=== PATIENT | female | born 1950 | race Caucasian/White ===

== ENCOUNTER 2021-03-14 10:23 | Observation (INO) | payer MEDICARE ==
[~2021-03-14] VITALS: Ht 162.6 cm; Wt 68.1 kg
[~2021-03-14 10:23] MED LIST: ASPI-424 PO; CALC1TAB67 PO; MULT-208 PO; OMEG1CAP6 PO
[2021-03-14] MEDS ORDERED: IV NORMAL SALINE 1000ML BAG 1,000 ML IV SCH (10:30)
[2021-03-14 10:48] LABS: BASO % 1 % (0-3); EOS # 0.2 x10^3/uL (0.0-0.7); EOS % 3 % (0-3); HEMATOCRIT 37.1 % (36.0-47.0); HEMOGLOBIN 12.8 g/dL (12.0-15.5); LYMPH # 2.2 x10^3/uL (1.0-4.8); LYMPH % 31 % (24-48); MEAN CORPUSCULAR HEMOGLOBIN 30 pg (25-35); MEAN CORPUSCULAR HGB CONC 35 g/dL (31-37); MEAN CORPUSCULAR VOLUME 86 fL (79-100); MONO # 0.7 x10^3/uL (0.0-1.1); MONO % 9 % (0-9); NEUT # 3.9 x10^3/uL (1.8-7.7); NEUT % 56 % (31-73); PLATELET COUNT 267 x10^3/uL (140-400); RED BLOOD COUNT 4.32 x10^6/uL (3.50-5.40); RED CELL DISTRIBUTION WIDTH 13.4 % (11.5-14.5); WHITE BLOOD COUNT 7.1 x10^3/uL (4.0-11.0)
[2021-03-14 10:59] LABS: CALCIUM 9.1 mg/dL (8.5-10.1); CREATININE 0.8 mg/dL (0.6-1.0); GFR 70.5; POTASSIUM 3.8 mmol/L (3.5-5.1)
[2021-03-14 11:05] LABS: ALBUMIN/GLOBULIN RATIO 1.2 (1.0-1.7); MAGNESIUM 1.9 mg/dL (1.8-2.4); TOTAL BILIRUBIN 0.4 mg/dL (0.2-1.0); TOTAL PROTEIN 7.3 g/dL (6.4-8.2)
[2021-03-14 11:11] LABS: BILIRUBIN,URINE NEGATIVE (NEG); CLARITY,URINE CLEAR; COLOR,URINE YELLOW; NITRITE,URINE NEGATIVE (NEG); PROTEIN,URINE NEGATIVE (NEG-TRACE); UROBILINOGEN,URINE 0.2 mg/dL (0.2 mg/dL)
--- NOTE | 2021-03-14 11:11 | RAD ---
EXAM: Chest, single view. HISTORY: Chest pain. COMPARISON: 02/10/2015. FINDINGS: A frontal view of the chest is obtained. There is no infiltrate, pleural effusion or pneumo thorax. There are chronic appearing interstitial changes. There are calcified granula misprint heart is normal in size. IMPRESSION: No acute pulmonary finding. Electronically signed by: Alyssa Geiger MD (03/14/2021 11:08 AM) [id number]
[2021-03-14 11:18] LABS: BARBITURATES NEG (NEG); BENZODIAZEPINES NEG (NEG); CANNABINOIDS NEG (NEG); COCAINE NEG (NEG); METHADONE NEG (NEG); OPIATES NEG (NEG); PHENCYCLIDINE NEG (NEG)
[2021-03-14 11:20] VITALS: BP 118/54
[2021-03-14 11:20] LABS: AMPHETAMINE/METHAMPHETAMINE NEG (NEG)
[2021-03-14 11:24] LABS: RBC,URINE OCC /HPF (0-2)
[2021-03-14 11:25] LABS: BACTERIA,URINE MANY /HPF (0-FEW)
--- NOTE | 2021-03-14 11:34 | PHYS DOC ---
Past Medical History Past Medical History: No Pertinent History Past Surgical History: , Tonsillectomy, Other Additional Past Surgical Histo: knee scope, carpel tunnel Smoking Status: Never Smoker Alcohol Use: Rarely Drug Use: None Adult General Chief Complaint Chief Complaint: CHEST PAIN [facility] HPI Patient is a 71 year old female who denies any significant past medical history now presents emergency department complaint of new onset of chest pain. Patient states that approximately 6 AM this morning started having new onset of left anterior chest pain that intermittently radiated to the back. Patient states that it was worse when she was exerting herself, she was cooking and making breakfast this morning. Also notes that she had a similar episode which occ urred approximately 5 days ago which spontaneously resolved. Does states the episode this morning was associated with a sensation of dizziness as though she had to hold his over the counter in order to keep her self steady. Denies any fevers, chills, cough, recent illness or sick contacts. Review of Systems Review of Systems Constitutional: Denies fever or chills [] Eyes: Denies change in visual acuity, redness, or eye pain [] HENT: Denies nasal congestion or sore throat [] Respiratory: Denies cough or shortness of breath [] Cardiovascular: No additional information not addressed in HPI [] GI: Denies abdominal pain, nausea, vomiting, bloody stools or diarrhea [] : Denies dysuria or hematuria [] Musculoskeletal: Denies back pain or joint pain [] Integument: Denies rash or skin lesions [] Neurologic: Denies headache, focal weakness or sensory changes [] Endocrine: Denies polyuria or polydipsia [] All other systems were reviewed and found to be within normal limits, except as documented in this note. Current Medications Current Medications Current Medications Medications (Trade) Dose Ordered Sig/Janelle Start Time Stop Time Status Last Admin Dose Admin Sodium Chloride 1,000 ml @ 1,000 mls/hr Q1H 03/14/21 10:30 03/14/21 11:29 DC 03/14/21 10:44 1,000 MLS/HR Allergies Allergies Allergies Coded Allergies Type Severity Reaction Last Updated Verified No Known Drug Allergies 02/10/15 No Physical Exam Physical Exam Constitutional: Well developed, well nourished, no acute distress, non-toxic appearance. [] HENT: Normocephalic, atraumatic, bilateral external ears normal, oropharynx moist, no oral exudates, nose normal. [] Eyes: PERRLA, EOMI, conjunctiva normal, no discharge. [] Neck: Normal range of motion, no tenderness, supple, no stridor. [] Cardiovascular:Heart rate regular rhythm, no murmur [] Lungs & Thorax: Bilateral breath sounds clear to auscultation [] Abdomen: Bowel sounds normal, soft, no tenderness, no masses, no pulsatile masses. [] Skin: Warm, dry, no erythema, no rash. [] Back: No tenderness, no CVA tenderness. [] Extremities: No tenderness, no cyanosis, no clubbing, ROM intact, no edema. [] Neurologic: Alert and oriented X 3, normal motor function, normal sensory function, no focal deficits noted. [] Psychologic: Affect normal, judgement normal, mood normal. [] Current Patient Data Vital Signs Vital Signs Date Time Temp Pulse Resp B/P (MAP) Pulse Ox O2 Delivery O2 Flow Rate FiO2 03/14/21 10:25 98.3 75 18 183/82 (115) 100 Room Air 98.3 Lab Values Laboratory Tests Test 03/14/21 10:40 03/14/21 10:50 White Blood Count 7.1 x10^3/uL (4.0-11.0) Red Blood Count 4.32 x10^6/uL (3.50-5.40) Hemoglobin 12.8 g/dL (12.0-15.5) Hematocrit 37.1 % (36.0-47.0) Mean Corpuscular Volume 86 fL (79-100) Mean Corpuscular Hemoglobin 30 pg (25-35) Mean Corpuscular Hemoglobin Concent 35 g/dL (31-37) Red Cell Distribution Width 13.4 % (11.5-14.5) Platelet Count 267 x10^3/uL (140-400) Neutrophils (%) (Auto) 56 % (31-73) Lymphocytes (%) (Auto) 31 % (24-48) Monocytes (%) (Auto) 9 % (0-9) Eosinophils (%) (Auto) 3 % (0-3) Basophils (%) (Auto) 1 % (0-3) Neutrophils # (Auto) 3.9 x10^3/uL (1.8-7.7) Lymphocytes # (Auto) 2.2 x10^3/uL (1.0-4.8) Monocytes # (Auto) 0.7 x10^3/uL (0.0-1.1) Eosinophils # (Auto) 0.2 x10^3/uL (0.0-0.7) Basophils # (Auto) 0.0 x10^3/uL (0.0-0.2) Sodium Level 139 mmol/L (136-145) Potassium Level 3.8 mmol/L (3.5-5.1) Chloride Level 102 mmol/L (98-107) Carbon Dioxide Level 27 mmol/L (21-32) Anion Gap 10 (6-14) Blood Urea Nitrogen 15 mg/dL (7-20) Creatinine 0.8 mg/dL (0.6-1.0) Estimated GFR (Cockcroft-Gault) 70.5 BUN/Creatinine Ratio 19 (6-20) Glucose Level 92 mg/dL (70-99) Calcium Level 9.1 mg/dL (8.5-10.1) Magnesium Level 1.9 mg/dL (1.8-2.4) Total Bilirubin 0.4 mg/dL (0.2-1.0) Aspartate Amino Transferase (AST) 17 U/L (15-37) Alanine Aminotransferase (ALT) 26 U/L (14-59) Alkaline Phosphatase 87 U/L (46-116) Troponin I Quantitative < 0.017 ng/mL (0.000-0.055) CA-Rzv-Z-Type Natriuretic Peptide 101 pg/mL (0-124) Total Protein 7.3 g/dL (6.4-8.2) Albumin 4.0 g/dL (3.4-5.0) Albumin/Globulin Ratio 1.2 (1.0-1.7) Lipase 102 U/L (73-393) Urine Collection Type Unknown Urine Color Yellow Urine Clarity Clear Urine pH 7.0 (<5.0-8.0) Urine Specific [place] <=1.005 (1.000-1.030) Urine Protein Negative mg/dL (NEG-TRACE) Urine Glucose (UA) Negative mg/dL (NEG) Urine Ketones (Stick) Negative mg/dL (NEG) Urine Blood Negative (NEG) Urine Nitrite Negative (NEG) Urine Bilirubin Negative (NEG) Urine Urobilinogen Dipstick 0.2 mg/dL (0.2 mg/dL) Urine Leukocyte Esterase Trace (NEG) Urine RBC Occ /HPF (0-2) Urine WBC 1-4 /HPF (0-4) Urine Squamous Epithelial Cells Few /LPF Urine Bacteria Many /HPF (0-FEW) Urine Opiates Screen Neg (NEG) Urine Methadone Screen Neg (NEG) Urine Barbiturates Neg (NEG) Urine Phencyclidine Screen Neg (NEG) Urine Amphetamine/Methamphetamine Neg (NEG) Urine Benzodiazepines Screen Neg (NEG) Urine Cocaine Screen Neg (NEG) Urine Cannabinoids Screen Neg (NEG) Urine Ethyl Alcohol Neg (NEG) Laboratory Tests 03/14/21 10:40 Laboratory Tests 03/14/21 10:40 EKG EKG [] Radiology/Procedures Radiology/Procedures [] Course & Med Decision Making Course & Med Decision Making Pertinent Labs and Imaging studies reviewed. (See chart for details) 71F presenting to emergency department new onset of chest pain. Initial work-up negative without evidence of troponin anemia or EKG changes however given patient's age and presence of dizziness we will plan for her admission for observation Dragon Disclaimer Dragon Disclaimer This electronic medical record was generated, in whole or in part, using a voice recognition dictation system. Departure Departure Impression: Primary Impression: Chest pain Disposition: ADMITTED INPATIENT Condition: GOOD Referrals: BREN BERNSTEIN MD (PCP) PERRI SONG MD Mar 14, 2021 11:33
--- NOTE | 2021-03-14 11:37 | EKG ---
[facility] [address] [place] [address] Test Date: 2021-03-14 Test Time: 10:29:50 Pat Name: VANGIE PARSONS Department: Room: Gender: F Pin Sticker: : [id number] Requested By: PERRI SONG Order Number: [id number] Reading MD: Bari Alba MD Measurements Intervals [place] Rate: 67 P: 43 NE: 192 QRS: 57 QRSD: 76 T: 54 QT: 378 QTc: 402 Interpretive Statements SINUS RHYTHM RBBB Electronically Signed On 03-14-2021 16:11:51 CDT by Bari Alba MD
[2021-03-14] MEDS ORDERED: ONDANSETRON PF 4 MG/2 ML VIAL. IV PRN (11:45)
[2021-03-14 12:43] VITALS: BP 164/67
--- NOTE | 2021-03-14 13:03 | HP ---
ADMIT DATE: 03/14/2021 CHIEF COMPLAINT: Chest pain. HISTORY OF PRESENT ILLNESS: The patient is a pleasant 71-year-old female, who presents with chest pain. She denies any history of coronary artery disease. She states it has been occurring for several days, got worse this morning about 6:00. She had some left anterior chest pain that was intermittent and radiated to the back, worse when she is moving, better when she is sitting still. I discussed the case with ER physician. We are going to admit the patient to rule out coronary artery disease. PAST SURGICAL HISTORY: , tonsillectomy, knee surgery, carpal tunnel surgery. ALLERGIES: None. FAMILY HISTORY: Diabetes. SOCIAL HISTORY: She is . Does not drink, smoke or take drugs. MEDICATIONS: Reviewed. Please refer there for the medication. REVIEW OF SYSTEMS: GENERAL: No history of weight change, weakness or fevers. SKIN: No bruising, hair changes or rashes. EYES: No blurred, double or loss of vision. NOSE AND THROAT: No history of nosebleeds, hoarseness or sore throat. CARDIAC: She complains of chest pain. LUNGS: Denies cough, hemoptysis, wheezing or shortness of breath. GASTROINTESTINAL: Denies changes in appetite, nausea, vomiting, diarrhea or constipation. GENITOURINARY: No history of frequency, urgency, hesitancy or nocturia. NEUROLOGIC: Denies history of numbness, tingling, tremor or weakness. PSYCHIATRIC: No history of panic, anxiety or depression. ENDOCRINE: No history of heat or cold intolerance, polyuria or polydipsia. EXTREMITIES: Denies muscle weakness, joint pain, pain on walking or stiffness. PHYSICAL EXAMINATION: VITALS: Within normal limits and are stable. GENERAL: No apparent distress. Alert and oriented. HEENT: Normal cephalic atraumatic, external auditory canals are patent EYES: Extraocular muscles are intact, pupils are equally round and reactive to light and accommodation MUSCULOSKELETAL: Well developed, well nourished, good range of motion ENDOCRINE: No thyromegaly was palpated LYMPHATICS: No cervical chain or axillary nodes were noted HEMATOPOIETIC: No bruising NECK: Supple, no JVD, no thyromegaly was noted. LUNGS: Clear to auscultation in all lung avery without rhonchi or wheezing. HEART: RRR, S1, S2 present. Peripheral pulses intact, no obvious murmurs were noted. ABDOMEN: Soft, nontender. Positive bowel sounds no organomegaly, normal bowel sounds. EXTREMITIES: Without any cyanosis, clubbing, or edema. Pedal pulses intact, Homans sign is negative. NEUROLOGIC: Normal speech, normal tone. A and O x3, moves all extremities, no obvious focal deficits. PSYCHIATRIC: Normal affect, normal mood. Stable. SKIN: No ulcerations or rashes, good skin turgor, no jaundice. VASCULAR: Good capillary refill, neurovascular bundle appears to be intact. LABORATORY DATA: Hematology is normal. Electrolytes were normal. Troponin is 0. ASSESSMENT AND PLAN: Chest pain, rule out coronary artery disease. The patient has been amenable. Check serial enzymes, serial EKGs, home medications, deep venous thrombosis. Full code. Consult cardiology. Prognosis is guarded. SAURAV/POLA DR: Veronica TID: [id number]
[2021-03-14 14:44] VITALS: BP 159/66
--- NOTE | 2021-03-14 16:16 | PDOC2 ---
CARDIOLOGY CONSULT NOTE DATE OF SERVICE: DATE: 03/14/21 TIME: 16:12 CHIEF COMPLAINT: Chest pain HPI: Chen is a 71-year-old woman who comes into the hospital in the setting of chest pain. She apparently was in her usual state of health and this morning while walking and making some breakfast she began to feel some chest discomfort that was intermittent in nature and upon arrival to the ER was noted to have a systolic blood pressure above 180. Of note she was seen by her primary care physician in the recent past and advised to monitor blood pressure closely. Since admission she has not had any recurrence of chest pain. Initial EKG and cardiac enzymes are unremarkable. She has no palpitations, syncope, orthopnea or PND. No significant lower extremity edema. PMHX: 1. Hypertension SOCHX: No alcohol, tobacco or illicit drug use FAMHX: Noncontributory CURRENT MEDS: Current Medications Medications (Trade) Dose Ordered Sig/Janelle Route PRN Reason Start Time Stop Time Status Last Admin Dose Admin Sodium Chloride 1,000 ml @ 1,000 mls/hr Q1H IV 03/14/21 10:30 03/14/21 11:29 DC 03/14/21 10:44 ALLERGIES: Allergies Coded Allergies Type Severity Reaction Last Updated Verified No Known Drug Allergies 02/10/15 No ROS: Negative for 10 out of 14 systems reviewed unless otherwise mentioned above in HPI PHYSICAL EXAM: Vital Signs/I&O: Vital Signs Date Time Temp Pulse Resp B/P (MAP) Pulse Ox O2 Delivery O2 Flow Rate FiO2 03/14/21 14:44 97.6 67 18 159/66 (97) 99 Room Air 97.6 Physical Exam: The patient appeared well nourished and normally developed. Head exam is unremarkable. No scleral icterus or corneal arcus noted. Neck is without jugular venous distension, thyromegaly, or carotid bruits. Carotid upstrokes are brisk bilaterally. Lungs are clear to auscultation and percussion. Cardiac exam reveals the PMI to be normally sized and situated. Rhythm is regular. First and second heart sounds normal. No murmurs, rubs or gallops. Abdominal exam reveals normal bowel sounds, no masses, no organomegaly and no aortic enlargement. Extremities are nonedematous and both femoral and pedal pulses are normal. Msk: No traumua Neuro: No focal deficits DIAGNOSTIC TESTING: Negative EKG Normal cardiac enzymes Myocardial stress test in 2014 unremarkable ASSESSMENT: 1. Chest pain secondary to uncontrolled hypertension PLAN: 1. Initiate lisinopril 10 mg p.o. daily and monitor her blood pressure 2. Check lipid panel 3. Outpatient echocardiogram and stress testing. Thank you for this consultation. GERBER BEAL MD Mar 14, 2021 16:16
[2021-03-14] MEDS ORDERED: LISINOPRIL 10 MG TABLET PO ONE (16:30)
[2021-03-14 18:33] VITALS: BP 106/51
[2021-03-14 19:52] VITALS: BP 158/80
[2021-03-14 23:47] VITALS: BP 118/54
[2021-03-15 03:20] VITALS: BP 108/53
[2021-03-15] MEDS ORDERED: ACETAMINOPHEN 325 MG TABLET. PO PRN (06:15)
[2021-03-15 07:58] VITALS: BP 147/71
[2021-03-15 08:22] LABS: BASO % 1 % (0-3); EOS # 0.2 x10^3/uL (0.0-0.7); EOS % 3 % (0-3); HEMOGLOBIN 12.8 g/dL (12.0-15.5); LYMPH # 1.4 x10^3/uL (1.0-4.8); LYMPH % 29 % (24-48); MEAN CORPUSCULAR HEMOGLOBIN 29 pg (25-35); MEAN CORPUSCULAR HGB CONC 34 g/dL (31-37); MEAN CORPUSCULAR VOLUME 87 fL (79-100); MONO # 0.4 x10^3/uL (0.0-1.1); MONO % 9 % (0-9); NEUT # 2.8 x10^3/uL (1.8-7.7); NEUT % 57 % (31-73); PLATELET COUNT 257 x10^3/uL (140-400); RED BLOOD COUNT 4.35 x10^6/uL (3.50-5.40); RED CELL DISTRIBUTION WIDTH 13.3 % (11.5-14.5); WHITE BLOOD COUNT 4.8 x10^3/uL (4.0-11.0)
[2021-03-15 08:27] LABS: CALCIUM 8.7 mg/dL (8.5-10.1); CREATININE 0.8 mg/dL (0.6-1.0); GFR 70.5; POTASSIUM 3.9 mmol/L (3.5-5.1)
[2021-03-15 08:44] LABS: CHOLESTEROL/HDL RATIO 2.7
[2021-03-15] MEDS ORDERED: LISINOPRIL 10 MG TABLET PO SCH (09:00)
--- NOTE | 2021-03-15 10:53 | PDOC ---
Provider Note Date of Service: DATE: 03/15/21 TIME: 10:53 Provider Note Home on Lisinopril 10mg daily, Atorvastatin 20mg daily and ASA 81mg daily. Outpt stress testing. Thanks Justifications for Admission Other Justification GERBER BEAL MD Mar 15, 2021 10:53
[2021-03-15 10:59] VITALS: BP 155/75
[2021-03-15] MEDS ORDERED: ATOR20TA58 PO (12:39)
[2021-03-15] MEDS ORDERED: LISI10TA16 PO (12:39)
--- NOTE | 2021-03-15 13:30 | DS ---
DATE OF DISCHARGE: 03/15/2021 ADMISSION DIAGNOSIS: Chest pain, rule out coronary artery disease. DISCHARGE DIAGNOSES: 1. Resolving chest pain, suspect possible hypertension related (her pressures were 183/82 when she arrived here). 2. History of . 3. Tonsillectomy. 4. Right knee surgery. 5. Carpal tunnel surgery. CONSULTS: Cardiology. PROCEDURES: None. HOSPITAL COURSE: The patient is a pleasant elderly female who presented with chest pain. We admitted her and did serial enzymes, serial EKGs. We consulted Cardiology, do cardiac monitoring. We adjusted her blood pressures and now she is doing better today. I saw and examine her. She is at her baseline and wants to go home. We plan a discharge with close outpatient followup and cardiology would like to do an outpatient stress test. DISCHARGE DISPOSITION: Home. ACTIVITY: As tolerated. DIET: Low sodium. DISCHARGE MEDICATIONS: Please see the MRAD. Atorvastatin 20 a day, lisinopril 10 a day, aspirin 81 a day, vitamin D, multiple vitamins and omega-3 fish oils. Total time [address]: Veronica TID: [id number]
--- NOTE | 2021-03-15 14:23 | NUR ---
Discharge Note: VANGIE PARSONS Discharge instructions and discharge home medications reviewed with Patient and a copy given. All questions have been answered and understanding verbalized. The following instructions and handouts were given: DISCHARGE INSTRUCTIONS, WRITTEN PRESCRIPTION AND FOLLOW UP INSTRUCTIONS FOR PCP AND OUTPATIENT STRESS TEST Discontinued lines and drains: Peripheral IV intact. Patient discharged to Home or Self Care with Spouse via Ambulated
[2021-03-15] MEDS ORDERED: ATORVASTATIN CALCIUM 20 MG TABLET PO SCH (21:00)
== END 2021-03-15 14:30 | disposition home or self-care (01) ==
LOC: ER 10:23 → 2 NORTH 11:35 → OBSVTOIN 11:35 → INTOOBSV 11:35
PROVIDERS: ADMIT Internal Medicine; ATTEND Internal Medicine
DX: R07.89 Other chest pain (principal); I10 Essential (primary) hypertension; Z90.49 Acquired absence of other specified parts of digestive tract; Z98.891 History of uterine scar from previous surgery; Z98.890 Other specified postprocedural states; Z79.82 Long term (current) use of aspirin; Z79.899 Other long term (current) drug therapy
CPT/HCPCS: 36415; 71045; 80048; 80053; 80061; 80307; 81001; 83690; 83735; 83880; 84484; 85025; 93005; 96360; 99285; G0378; J7030; G0379

== ENCOUNTER → 2021-06-03 | Outpatient (CLI) | payer MEDICARE ==
[~2021-06-03] MED LIST changes: +ATOR20TA58 PO; +LISI10TA16 PO
--- NOTE | 2021-06-03 12:41 | RAD ---
MR#: [id number] Date of Study: 06/03/2021 Ordering Physician: GERBER BEAL, Referring Physician: DONNA HERNANDEZ Tech: RT Venita (R) (N) APPROVED REPORT Test Type: Exercise Stress Nurse/Tech: Wandy Dunne R.N. Test Indications: chest pain Cardiac History: htn, Medications: lisinopril Medical History: see ehr Resting ECG: sr Resting Heart Rate: 64 bpm Resting Blood Pressure: 151/68mmHg Pretest Chest Pain: No chest pain Nurse/Tech Notes lungs cta, heart tones regular Consent: The procedure was explained to the patient in lay terms. Informed consent was witnessed. Hussain eout was entered into [employer]. History and Stress Test performed by RT Rusty Nathan) (N) Stress Symptoms No chest pain or symptoms. POST EXERCISE Reason for Termination: Reached target heart rate Target HR: Yes Max HR: 145 bpm 98% of Maximum Predicted HR: 148 bpm Exercise duration: 5:58 min:sec, 2 Stage Exercise capacity: 7.0METs Max Blood Pressure: 160/64mmHg Blood Pressure response to exercise: Normal blood pressure response during stress. Heart Rate response to exercise: normal Chest Pain: No. Arrhythmia: Yes. unifocal PVCs noted during exercise and recovery ST Change: No. INTERPRETATION Stress EKG Conclusion: Baseline EKG showed sinus rhythm. No ischemic changes at peak stress. Few PV C's without any significant arrhythmias. Imaging Protocol IMAGE PROTOCOL: Rest Tc-99m/stress Tc-99m 1 day Rest: Stress: Viability: Radiopharm.Tc99m DvtynxhueKy76z Sestamibi Bops60sUm 31mCi Duration 13min. 13min. Img Date 06/03/2021 06/03/2021 Inj-Img Wydp44wbs. 60min. Post-Injection Exercise: 2 minutes Rest Admin Site:IV - Left AntecubitalAdministrator:RT Venita (Anthony)(N) Stress Admin Site: IV - Left AntecubitalAdministrator: RT Venita (Anthony)(N) STRESS DATA End Diast. Vol.66.0mlLVEDV index BSA38.0ml End Syst. Vol.6.0mlLVESV index BSA4.0ml Myocardial Ahbu056.0gEject. Spvjndrk33.0% Stress Scores Regional WT0.00Summed WT0.00 Regional WM0.00Summed WM0.00 Study quality was good. Left Ventricular size was Normal at Rest and Stress. Lung uptake was . Left Ventricular ejection fraction is 89%. The rest and stress images show normal perfusion, normal contraction and thickening. LV Perf. Quant 17 Seg. SSS0.00 17 Seg. SRS0.00 17 Seg. SDS0.00 Stress Defect Extent (% LAD)0.00Rest Defect Extent (% LAD)7.50Rev. Defect Extent (% LAD)0.00 Stress Defect Extent (% LCX) 0.00Rest Defect Extent (% LCX)0.00Rev. Defect Extent (% LCX)0.00 Stress Defect Extent (% RCA)0.00Rest Defect Extent (% RCA)0.00Rev. Defect Extent (% RCA)0.00 Stress Defect Extent (% DAYSI)0.00Rest Defect Extent (% DAYSI)2.60Rev. Defect Extent (% DAYSI)0.00 Conclusion 1. Treadmill exercise cardioisotope stress test did not show any evidence of ischemia or infarct. 2. Normal left ventricular systolic function with ejection fraction calculated at 89%. 3. Low risk for cardiac events. Signed by : Pablo Blank, Electronically Approved : 06/03/2021 12:40:41
--- NOTE | 2021-06-03 16:20 | CARD ---
MR#: [id number] Date of Study: 06/03/2021 Ordering Physician: GERBER BEAL, Referring Physician: GERBER BEAL, Tech: Akilah Cade [facility] APPROVED REPORT EXAM: Two-dimensional and M-mode echocardiogram with Doppler and color Doppler. Other Information Quality : AverageHR: 70bpm Rhythm : NSR INDICATION Hypertension/HCVD RISK FACTORS Hypertension 2D DIMENSIONS RVDd3.2 (2.9-3.5cm)Left Atrium(2D)3.0 (1.6-4.0cm) IVSd0.8 (0.7-1.1cm)Aortic Root(2D)2.9 (2.0-3.7cm) LVDd4.6 (3.9-5.9cm)LVOT Diameter2.1 (1.8-2.4cm) PWd0.8 (0.7-1.1cm)LVDs2.6 (2.5-4.0cm) FS (%) 43.4 %SV71.8 ml LVEF(%)74.7 (>50%) Aortic Valve AoV Peak Bart.138.2cm/sAoV VTI28.9cm AO Peak GR.7.6mmHgLVOT VTI 28.82cm AO Mean GR.3mmHg Mitral Valve MV E Eeevgtnh02.4cm/sMV DECEL BIPB210vo MV A Iagdkdzh92.3cm/sE/A Ratio1.0 TDI Lateral E' P. V13.45cm/sMedial E' P. V8.56cm/s E/Lateral E'6.2E/Medial E'9.7 Tricuspid Valve TR P. Fhsftbta428xv/sTR Peak Gr.19mmHg LEFT VENTRICLE The left ventricle is normal size. There is normal left ventricular wall thickness. The left ventricu lar systolic function is normal. Estimated ejection fraction 55-60%. There is normal LV segmental wal l motion. The left ventricular diastolic function and filling is normal for age. RIGHT VENTRICLE The right ventricle is normal size. There is normal right ventricular wall thickness. The right ventr icular systolic function is normal. ATRIA The left atrium size is normal. The right atrium size is normal. The interatrial septum is intact wit h no evidence for an atrial septal defect or patent foramen ovale as noted on 2-D or Doppler imaging. AORTIC VALVE The aortic valve is normal in structure and function. Doppler and Color Flow revealed no significant aortic regurgitation. There is no significant aortic valvular stenosis. MITRAL VALVE The mitral valve is normal in structure and function. There is no evidence of mitral valve prolapse. There is no mitral valve stenosis. Doppler and Color-flow revealed trace to mild mitral regurgitation . TRICUSPID VALVE The tricuspid valve is normal in structure and function. Doppler and Color Flow revealed trace tricus pid regurgitation. There is no tricuspid valve stenosis. PULMONIC VALVE The pulmonary valve is normal in structure and function. Doppler and Color Flow revealed trace to mil d pulmonic valvular regurgitation. GREAT VESSELS The aortic root is normal in size. The ascending aorta is normal in size. The IVC is normal in size a nd collapses >50% with inspiration. PERICARDIAL EFFUSION There is no evidence of significant pericardial effusion. Critical Notification Critical Value: No <Conclusion> The left ventricular systolic function is normal. Estimated ejection fraction 55-60%. There is normal LV segmental wall motion. Trace to mild mitral regurgitation. Trace tricuspid regurgitation. There is no evidence of significant pericardial effusion. Signed by : Pablo Blank, Electronically Approved : 06/03/2021 16:19:30
== END ==
LOC: NM 08:23
PROVIDERS: ATTEND Internal Medicine Cardiovascular Disease
DX: I08.8 Other rheumatic multiple valve diseases (principal)
CPT/HCPCS: 78452; 93017; 93306; A9500